=== PATIENT | female | born 1990 | race Caucasian/White ===

== ENCOUNTER 2020-07-25 20:39 | Emergency (ER) | payer BC ==
[2020-07-25] MEDS ORDERED: ONDANSETRON ODT 8 MG TAB SL ONE (20:46)
[2020-07-25] MEDS ORDERED: ALUMINUM & MAGNESIUM HYDROXIDE 30 ML UD PO ONE (20:47)
[2020-07-25 20:51] VITALS: TEMP 97.7; O2SAT 98
--- NOTE | 2020-07-25 21:06 | RAD ---
EXAM DESCRIPTION: XR Chest,1 View CLINICAL HISTORY: brief sob TECHNIQUE: Single frontal view of the chest is submitted. COMPARISON: None available for comparison FINDINGS: Heart: The cardiothoracic silhouette is within normal limits. Lungs: No focal consolidation. Mediastinum: Unremarkable Pleura: No appreciable effusion. No pneumothorax. Bones: Intact Upper abdomen: Unremarkable IMPRESSION: No acute disease. Electronically signed by: Misti Anguiano MD 07/25/2020 9:04 PM [facility]
[2020-07-25] MEDS ORDERED: predniSONE 20 MG TAB PO ONE (21:27)
[2020-07-25] MEDS ORDERED: AZITHROMYCIN 250 MG TAB PO ONE (21:27)
--- NOTE | 2020-07-25 21:40 | ED.PDOC ---
History of Present Illness - General Chief Complaint: Respiratory Problem Stated Complaint: short of breath Time Seen by Provider: 07/25/20 20:40 Source: patient Exam Limitations: no limitations - History of Present Illness Initial Comments: The patient is a 30-year-old female presented emergency room secondary to a feeling of nausea and some mild shortness of breath that started about 3 hours ago after she got out of the shower. No palpitations. No syncope but questionable near syncope. No cough or runny nose. No headache. No fever to this point. No rash. Timing/Duration: 1-3 hours Severity: mild Improving Factors: nothing Worsening Factors: nothing Associated Symptoms: shortness of breath Allergies/Adverse Reactions: Allergies NO KNOWN ALLERGY Allergy (Verified 07/25/20 21:26) Home Medications: Ambulatory Orders Azithromycin 500 mg PO DAILY #5 tab 07/25/20 Famotidine [Pepcid Tab] 20 mg PO BID #14 tab 07/25/20 Ondansetron Odt [Zofran ODT] 4 mg PO Q8HR PRN #5 tab 07/25/20 predniSONE [Prednisone] 20 mg PO DAILY #5 tab 07/25/20 Review of Systems - Review of Systems Constitutional: States: malaise EENTM: States: no symptoms reported Respiratory: States: short of breath Cardiology: States: no symptoms reported Gastrointestinal/Abdominal: States: nausea Genitourinary: States: no symptoms reported Musculoskeletal: States: no symptoms reported Skin: States: no symptoms reported Neurological: States: no symptoms reported Endocrine: States: no symptoms reported All other Systems: No Change from Baseline Past Medical History (General) - Patient Medical History Hx Hypertension: Yes - Vaccination History Hx Tetanus, Diphtheria Vaccination: Yes Hx Influenza Vaccination: Yes Hx Pneumococcal Vaccination: No Immunizations Up to Date: Yes - Social History Hx Tobacco Use: No Hx Alcohol Use: No Hx Substance Use: No Hx Substance Use Treatment: No Hx Depression: No - Female History Patient is a Female of Child Bearing Age (10 -59 yrs old): Yes Patient : No Family Medical History - Family History Mother Family History: Unknown Physical Exam - Physical Exam General Appearance: Alert, Anxious, No apparent distress Eye Exam: bilateral normal Ears, Nose, Throat: hearing grossly normal, normal ENT inspection, normal pharynx Neck: full range of motion, supple Respiratory: lungs clear, normal breath sounds, no respiratory distress, no accessory muscle use Cardiovascular/Chest: normal peripheral pulses, regular rate, rhythm - Borde rline sinus tachycardia, no edema Peripheral Pulses: radial,right: 2+, radial,left: 2+ Gastrointestinal/Abdominal: non tender, soft Rectal Exam: deferred Back Exam: normal inspection, no CVA tenderness, no vertebral tenderness Extremity: normal range of motion, non-tender, normal inspection, no pedal edema 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, alert, normal mood/affect, oriented x 3 Skin Exam: normal color Comments: Vital Signs - 24 hr 07/25/20 07/25/20 20:44 20:49 Temperature 97.7 F Pulse Rate [ 113 H Left Radial] Respiratory 18 18 Rate Blood Pressure 133/104 [Left Arm] O2 Sat by Pulse 98 Oximetry Progress - Progress Progress: 07/25/20 21:40 Laboratory Results - last 24 hr 07/25/20 07/25/20 21:05 21:05 Urine Color Yellow Urine Appearance Cloudy Urine pH 8.5 H Ur Specific [place] 1.020 Urine Protein Negative Urine Glucose (UA) Negative Urine Ketones Trace Urine Blood Negative Urine Nitrite Negative Urine Bilirubin Negative Urine Urobilinogen 0.2 Ur Leukocyte Esterase Negative Urine RBC 1-3 Urine WBC 5-10 H Ur Epithelial Cells 10-20 Amorphous Sediment 3+ Urine Bacteria 2+ H Urine HCG, Qual Negative Patient tested positive for coronavirus Chest x-ray is clear. 07/25/20 21:40 The patient is a 30-year-old female presented emergency room with what appears to be acute coronavirus infection. No hypoxia or respiratory distress. She does appear to be having some nausea. The patient is going to be treated with Zofran, azithromycin and prednisone. 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 She is to keep her self well-hydrated. Tylenol can be used for the fever and body aches. She does need to quarantine. Additionally the patient does appear to have asymptomatic urinary tract infection. She will need to have a repeat urinalysis checked in about 7 to 10 days. ER warnings are given. [email or web address] rios [id number] 07/25/20 21:41 - Results/Orders Results/Orders: Vital Signs - 24 hr 07/25/20 07/25/20 20:44 20:49 Temperature 97.7 F Pulse Rate [ 113 H Left Radial] Respiratory 18 18 Rate Blood Pressure 133/104 [Left Arm] O2 Sat by Pulse 98 Oximetry Departure - Departure Clinical Impression: COVID-19 virus infection Acute cystitis Qualifiers: Hematuria presence: without hematuria Qualified Code(s): N30.00 - Acute cystitis without hematuria Disposition: Discharge to Home or Self Care Condition: Fair Departure Forms: ED Discharge - Pt. Copy, Patient Portal Self Enrollment Instructions: Urinary Tract Infection, Adult (DC), Coronavirus Disease 2019 (COVID-19) Diet: regular diet Activity: increase activity as tolerated Referrals: Jennifer Tyler NP [Primary Care Provider] - 1-2 Weeks Prescriptions: Ondansetron Odt [Zofran ODT] 4 mg PO Q8HR PRN #5 tab PRN Reason: Nausea--Moderate Azithromycin 500 mg PO DAILY #5 tab Famotidine [Pepcid Tab] 20 mg PO BID #14 tab predniSONE [Prednisone] 20 mg PO DAILY #5 tab Home Medications: Ambulatory Orders Azithromycin 500 mg PO DAILY #5 tab 07/25/20 Famotidine [Pepcid Tab] 20 mg PO BID #14 tab 07/25/20 Ondansetron Odt [Zofran ODT] 4 mg PO Q8HR PRN #5 tab 07/25/20 predniSONE [Prednisone] 20 mg PO DAILY #5 tab 07/25/20 Additional Instructions: The patient is a 30-year-old female presented emergency room with what appears to be acute coronavirus infection. No hypoxia or respiratory distress. She does appear to be having some nausea. The patient is going to be treated with Zofran, azithromycin and prednisone. 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 She is to keep her self well-hydrated. Tylenol can be used for the fever and body aches. She does need to quarantine. Additionally the patient does appear to have asymptomatic urinary tract infection. She will need to have a repeat urinalysis checked in about 7 to 10 days. ER warnings are given.
[2020-07-25 22:01] VITALS: BP 121/92
== END 2020-07-25 22:01 | disposition home or self-care (01) ==
LOC: ER 20:39
DX: U07.1 COVID-19 (principal); N30.00 Acute cystitis without hematuria; I10 Essential (primary) hypertension; Z79.899 Other long term (current) drug therapy
CPT/HCPCS: 71045; 81001; 81025; 87635; J7512; Q0144

== ENCOUNTER 2020-09-28 16:17 | Emergency (ER) | payer BC ==
--- NOTE | 2020-09-28 16:23 | ED.PDOC ---
History of Present Illness - General Stated Complaint: Chest pain Time Seen by Provider: 09/28/20 16:23 - History of Present Illness Initial Comments: Patient complains of midsternal chest pain onset at 11 AM. Patient denies dyspnea. She says her symptoms are worse when supine. Pain is pressure-like and does not radiate. It is about 7/10 in intensity. Patient denies dyspnea or diaphoresis. She said she had similar symptoms when she was diagnosed with COVID-19 on July 252019. Patient does not have any history of coronary disease or diabetes. She does have hypertension. Patient was seen by her private doctor 2 days ago and diagnosed with a sinus infection. She was given a shot of steroids at the time and a prescription for amoxicillin. Over the last 2 days the patient has been nauseated and constipated. She has had no vomiting. She is not complaining of any significant abdominal pain. Prescription of amoxicillin was discontinued due to the nausea. Patient has not taken her blood pressure medicine for 2 days due to nausea although she has not been vomiting. Timing/Duration: 4-6 hours Severity: moderate Worsening Factors: nothing Associated Symptoms: chest pain Allergies/Adverse Reactions: Allergies NO KNOWN ALLERGY Allergy (Verified 09/28/20 16:53) Home Medications: Ambulatory Orders Azithromycin 500 mg PO DAILY #5 tab 07/25/20 Famotidine [Pepcid Tab] 20 mg PO BID #14 tab 07/25/20 Ondansetron Odt [Zofran ODT] 4 mg PO Q8HR PRN #5 tab 07/25/20 predniSONE [Prednisone] 20 mg PO DAILY #5 tab 07/25/20 Promethazine Tab [Phenergan Tablet] 25 mg PO .Q4H 5 Days #20 tab 09/28/20 Review of Systems - Review of Systems Constitutional: States: no symptoms reported EENTM: States: nose congestion - Improved on medications recently prescribed by her doctor. , other Respiratory: States: no symptoms reported Cardiology: States: see HPI, chest pain Gastrointestinal/Abdominal: States: see HPI, nausea Genitourinary: States: no symptoms reported, other - Last menstrual period last week. Takes control pills. Musculoskeletal: States: no symptoms reported Skin: States: no symptoms reported Neurological: States: no symptoms reported Endocrine: States: no symptoms reported Hematologic/Lymphatic: States: no symptoms reported Past Medical History (General) - Patient Medical History Hx Hypertension: Yes - Vaccination History Hx Tetanus, Diphtheria Vaccination: Yes Hx Influenza Vaccination: Yes Hx Pneumococcal Vaccination: No - Social History Hx Tobacco Use: No Hx Alcohol Use: No Hx Substance Use: No Hx Substance Use Treatment: No Hx Depression: No - Female History Patient : No Family Medical History - Family History Mother Family History: Unknown Physical Exam - Physical Exam General Appearance: Alert, Comfortable Eye Exam: bilateral normal Ears, Nose, Throat: hearing grossly normal, normal ENT inspection, normal pharynx, other - Tympanic membranes are normal bilaterally. Sinuses nontender to percussion. 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 All diagnostic findings diagnosis and treatment plan explained to the patient. 09/28/20 18:48 Medical decision making: Previously healthy 30-year-old female complaining of chest pain. Patient has unremarkable EKG, chest x-ray, and cardiac enzymes. Vital signs are unremarkable except for hypertension which is exacerbated by the fact that she is not been taking her medicine for the last 2 days. Patient is under the care of her primary care physician for sinusitis. Patient does not appear to have an acute life-threatening illness such as VA or pulmonary embolism. She will be treated symptomatically for her chest wall pain and nausea. - Results/Orders Results/Orders: EXAM DESCRIPTION: Chest,1 View CLINICAL HISTORY: 30 years Female Shortness of breath, chest pain COMPARISON: Portable chest dated 07/25/2020 TECHNIQUE: Portable AP view of the chest is obtained. FINDINGS IN THE CHEST: Heart: Allowing for magnification factors related to AP portable technique and body habitus, the heart is normal in size and configuration. Vasculature: [] There is no evidence of aortic aneurysm or acute findings. The pulmonary vascularity is normal. Mediastinum: No evidence of mass or adenopathy. Lungs: There is no focal consolidation in the lungs. Pleura: There are no pleural effusions. There are no pneumothoraces. Osseous structures: No evidence of acute fracture, osteolytic lesions or osteoblastic lesions. Tubes and catheters: None Chest wall: Unremarkable. Visualized Abdomen: Unremarkable. IMPRESSION: No significant [] radiographic abnormalities in the chest. Remainder of findings as described above. Electronically signed by: Barbara Irizarry MD 09/28/2020 5:19 PM Electrocardiogram: Normal sinus rhythm, 100 bpm. No significant interval abnormalities. Nonspecific ST-T changes but no STT-segment abnormalities. 09/28/20 16:45 EKG STAT Laboratory Results - last 24 hr 09/28/20 09/28/20 16:51 16:51 WBC 11.1 H RBC 4.49 Hgb 13.6 Hct 40.5 MCV 90.2 MCH 30.3 MCHC 33.6 RDW 12.6 Plt Count 239 MPV 9.2 Absolute Neuts (auto) 8.20 H Absolute Lymphs (auto) 2.20 Absolute Monos (auto) 0.60 Absolute Eos (auto) 0.10 Absolute Basos (auto) 0.10 Neutrophils % 73.7 Lymphocytes % 19.6 L Monocytes % 5.1 Eosinophils % 1.0 Basophils % 0.6 Sodium 137 Potassium 3.6 Chloride 100 L Carbon Dioxide 25 Anion Gap 15.6 BUN 7 Creatinine 0.74 BUN/Creatinine Ratio 9.5 L Random Glucose 113 H Serum Osmolality 272.6 L Calcium 9.2 Total Bilirubin 0.3 AST 22 ALT 25 Alkaline Phosphatase 62 Creatine Kinase 46 CK-MB (CK-2) 1.0 CK-MB (CK-2) % Not Reportable Troponin I < 0.02 Serum Total Protein 7.6 Albumin 3.9 Globulin 3.7 H Albumin/Globulin Ratio 1.1 Departure - Departure Clinical Impression: Chest wall pain, Nausea Time of Disposition: 18:12 Disposition: Discharge to Home or Self Care Condition: Good Departure Forms: ED Discharge - Pt. Copy, Patient Portal Self Enrollment Instructions: Nausea and Vomiting, Adult (DC), Costochondritis (DC) Referrals: Jennifer Tyler NP [Primary Care Provider] - 1-2 Weeks Prescriptions: Promethazine Tab [Phenergan Tablet] 25 mg PO .Q4H 5 Days #20 tab Home Medications: Ambulatory Orders Azithromycin 500 mg PO DAILY #5 tab 07/25/20 Famotidine [Pepcid Tab] 20 mg PO BID #14 tab 07/25/20 Ondansetron Odt [Zofran ODT] 4 mg PO Q8HR PRN #5 tab 07/25/20 predniSONE [Prednisone] 20 mg PO DAILY #5 tab 07/25/20 Promethazine Tab [Phenergan Tablet] 25 mg PO .Q4H 5 Days #20 tab 09/28/20 Additional Instructions: Return if you have acutely worsening chest pain or trouble breathing. See your doctor if your symptoms do not subside. It is okay to resume your Augmentin if it does not upset your stomach.
--- NOTE | 2020-09-28 17:21 | RAD ---
EXAM DESCRIPTION: Chest,1 View CLINICAL HISTORY: 30 years Female Shortness of breath, chest pain COMPARISON: Portable chest dated 07/25/2020 TECHNIQUE: Portable AP view of the chest is obtained. FINDINGS IN THE CHEST: Heart: Allowing for magnification factors related to AP portable technique and body habitus, the heart is normal in size and configuration. Vasculature: [] There is no evidence of aortic aneurysm or acute findings. The pulmonary vascularity is normal. Mediastinum: No evidence of mass or adenopathy. Lungs: There is no focal consolidation in the lungs. Pleura: There are no pleural effusions. There are no pneumothoraces. Osseous structures: No evidence of acute fracture, osteolytic lesions or osteoblastic lesions. Tubes and catheters: None Chest wall: Unremarkable. Visualized Abdomen: Unremarkable. IMPRESSION: No significant [] radiographic abnormalities in the chest. Remainder of findings as described above. Electronically signed by: Barbara Irizarry MD 09/28/2020 5:19 PM [employer]
[2020-09-28] MEDS ORDERED: IBUPROFEN 200 MG TAB PO ONE (18:08)
[2020-09-28] MEDS ORDERED: ONDANSETRON ODT 8 MG TAB SL ONE (18:08)
[2020-09-28] MEDS ORDERED: PROMETHAZINE TAB (ER DISP) 25 MG TAB PO ONE (18:15)
[2020-09-28] MEDS ORDERED: PROMETHAZINE HCL 25 MG TAB PO ONE (18:16)
[2020-09-28 18:40] VITALS: BP 125/101; TEMP 97.8; O2SAT 97
== END 2020-09-28 18:15 | disposition home or self-care (01) ==
LOC: ER 16:17
DX: R07.89 Other chest pain (principal); R11.0 Nausea; K59.00 Constipation, unspecified; I10 Essential (primary) hypertension; Z86.16 Personal history of COVID-19; Z79.899 Other long term (current) drug therapy
CPT/HCPCS: 36415; 71045; 80053; 82550; 82553; 84484; 85025; 93005; Q0169